=== PATIENT | female | born 1940 | race Two or more races ===

== ENCOUNTER 2018-11-23 13:09 | Inpatient (IN) | payer MEDICARE, OTHER ==
[~2018-11-23] VITALS: Ht 160 cm; Wt 81.6 kg
[2018-11-23] MEDS ORDERED: LORAZEPAM 1 MG TABLET ONE (13:13)
[2018-11-23] MEDS ORDERED: OLANZAPINE 5 MG TABLET ONE (13:14)
[2018-11-23] MEDS ORDERED: LORAZEPAM 0.5 MG TABLET PO ONE (13:15)
[2018-11-23] MEDS ORDERED: OLANZAPINE 5 MG TABLET PO ONE (13:15)
[2018-11-23 13:33] LABS: BASOPHILS # (AUTO) 0.1 K/uL (0.0-8.0); BASOPHILS % (AUTO) 0.8 % (0.0-2.0); EOSINOPHILS % (AUTO) 0.5 % (0.0-7.0); HEMOGLOBIN 12.7 g/dL (10.9-14.3); LYMPHOCYTES # (AUTO) 1.1 K/uL (20.0-40.0); LYMPHOCYTES % (AUTO) 13.7 % (20.5-51.5); MEAN CORPUSCULAR HEMOGLOBIN 29.9 uug (24.7-32.8); MEAN CORPUSCULAR HGB CONC 34 g/dL (32.3-35.6); MEAN CORPUSCULAR VOLUME 89.1 fL (75.5-95.3); MONOCYTES # (AUTO) 0.5 K/uL (2.0-10.0); MONOCYTES % (AUTO) 6.4 % (0.0-11.0); NEUTROPHILS # (AUTO) 6.3 K/uL (1.8-8.9); NEUTROPHILS % (AUTO) 78.6 % (38.5-71.5); PLATELET COUNT (AUTO) 337 K/uL (179-408); RED BLOOD CELL COUNT(AUTO) 4.26 MIL/uL (3.63-4.92)
[2018-11-23 13:39] LABS: CARBON DIOXIDE 28 mmol/L (21-32); CHLORIDE 106 mmol/L (98-107); CREATININE 0.8 mg/dL (0.6-1.3); GLUCOSE 81 mg/dL (74-106); POTASSIUM 3.2 mmol/L (3.5-5.1); UREA NITROGEN, BLOOD 21 mg/dL (7-18)
[2018-11-23 13:40] LABS: ETHANOL < 3 MG/DL (0-0)
[2018-11-23 13:50] LABS: *BILIRUBIN,URIN NEGATIVE (NEGATIVE); *BLOOD, URINE Trace-intact (NEGATIVE); *CLARITY,URINE CLEAR (CLEAR); *COLOR,URINE YELLOW (YELLOW); *KETONES,URINE 2+ (NEGATIVE); *PROTEIN,URINE 1+ (NEGATIVE); *UROBILINOGEN,URINE 0.2 E.U./dl (NORMAL); LEUKOCYTE ESTERASE ,URINE NEGATIVE (NEGATIVE); NITRITE, URINE NEGATIVE (NEGATIVE); PH,URINE 7.5 (5.0-8.0); UGLUCOSE NEGATIVE (NEGATIVE)
[2018-11-23 13:52] LABS: ACETAMINOPHEN < 2.0 ug/mL (10-30); ALANINE AMINOTRANSFERASE 31 U/L (14-59); ALKALINE PHOSPHATASE 93 U/L (50-136); ASPARTATE AMINOTRANSFERASE 30 U/L (15-37); BILIRUBIN,DIRECT 0.2 mg/dL (0.0-0.2); BILIRUBIN,TOTAL 0.5 mg/dL (0.2-1.0); TOTAL PROTEIN, SERUM 7.6 g/dL (6.4-8.2)
[2018-11-23 13:54] LABS: BACTERIA,URINE FEW /HPF (NONE SEEN); RBC,URINE 0-3 /HPF (0-3); SQUAMOUS EPITHELIAL CELL,UR FEW /HPF (NONE SEEN); WBC,URINE 0-3 /HPF (0-3)
[2018-11-23 14:00] LABS: *AMPHETAMINE, URINE NEGATIVE (NEGATIVE); *BARBITURATE, URINE NEGATIVE (NEGATIVE); *CANNABINOID, URINE NEGATIVE (NEGATIVE); *COCCAINE, URINE NEGATIVE (NEGATIVE); *OPIATE, URINE NEGATIVE (NEGATIVE); *PHENCYCLIDINE SCREEN,URINE NEGATIVE (NEGATIVE)
[2018-11-23] MEDS ORDERED: LORAZEPAM 0.5 MG TABLET PO PRN (14:30)
[2018-11-23] MEDS ORDERED: PNEUMOCOCCAL 23-VAL P-SAC VAC 0.5 ML VIAL IM ONE (15:15)
[2018-11-23] MEDS ORDERED: POTASSIUM CHLORIDE 20 MEQ TAB.PRT.SR PO STA (15:40)
[2018-11-23] MEDS: risperiDONE 0.25 MG TABLET PO SCH ×2 (16:28→16:29)
[2018-11-23 16:55] VITALS: BP 142/75
[2018-11-23 20:09] VITALS: BP 131/68
[2018-11-24] MEDS: LORAZEPAM 1 MG TABLET PO PRN ×2 (03:02→22:46)
[2018-11-24] MEDS: ESCITALOPRAM OXALATE 10 MG TABLET PO SCH (08:15)
[2018-11-24] MEDS: risperiDONE 0.25 MG TABLET PO SCH ×2 (08:15→16:35)
[2018-11-24 08:42] VITALS: BP 137/97
[2018-11-24] MEDS: ACETAMINOPHEN 325 MG TABLET PO PRN (16:32)
[2018-11-24 19:49] VITALS: BP 123/78
[2018-11-24] MEDS: ATORVASTATIN 20 MG TABLET PO SCH (20:18)
[2018-11-25 07:30] VITALS: BP 145/80
[2018-11-25] MEDS: risperiDONE 0.25 MG TABLET PO SCH ×2 (09:21→17:08)
[2018-11-25] MEDS: ESCITALOPRAM OXALATE 10 MG TABLET PO SCH (09:23)
[2018-11-25] MEDS: LORAZEPAM 1 MG TABLET PO PRN (12:40)
[2018-11-25 15:21] VITALS: BP 151/72
[2018-11-25 21:14] VITALS: BP 123/79
[2018-11-25] MEDS: ATORVASTATIN 20 MG TABLET PO SCH (21:44)
[2018-11-26] MEDS: LORAZEPAM 1 MG TABLET PO PRN (05:25)
[2018-11-26] MEDS: ACETAMINOPHEN 325 MG TABLET PO PRN ×2 (05:25→23:25)
[2018-11-26 07:30] VITALS: BP 128/63
[2018-11-26] MEDS: risperiDONE 0.25 MG TABLET PO SCH ×2 (08:12→16:09)
[2018-11-26] MEDS: ESCITALOPRAM OXALATE 10 MG TABLET PO SCH (08:13)
[2018-11-26] MEDS ORDERED: GUAIFENESIN/DEXTROMETHORPHAN 5 ML UDC PO PRN (11:45)
[2018-11-26] MEDS: MAG HYDROX/AL HYDROX/SIMETH 30 ML LIQUID UDC PO PRN (15:34)
[2018-11-26 17:10] VITALS: BP 125/71
[2018-11-26 19:41] VITALS: BP 152/79
[2018-11-26 20:06] VITALS: BP 132/69
[2018-11-26] MEDS: ATORVASTATIN 20 MG TABLET PO SCH (20:06)
[2018-11-26] MEDS: TEMAZEPAM 7.5 MG CAPSULE PO PRN (20:52)
[2018-11-27] MEDS: ESCITALOPRAM OXALATE 10 MG TABLET PO SCH (08:10)
[2018-11-27] MEDS: risperiDONE 0.25 MG TABLET PO SCH (08:10)
[2018-11-27 08:27] VITALS: BP 148/105
[2018-11-27] MEDS: ACETAMINOPHEN 325 MG TABLET PO PRN (10:52)
[2018-11-27] MEDS: LORAZEPAM 1 MG TABLET PO PRN (14:43)
[2018-11-27] MEDS: MAGNESIUM HYDROXIDE 30 ML LIQUID UDC PO PRN (14:43)
[2018-11-27] MEDS: risperiDONE 0.5 MG TABLET PO SCH (16:29)
[2018-11-27 16:30] VITALS: BP 131/76
[2018-11-27] MEDS ORDERED: risperiDONE 0.25 MG TABLET PO SCH (17:00)
[2018-11-27 19:47] VITALS: BP 143/77
[2018-11-27] MEDS: ATORVASTATIN 20 MG TABLET PO SCH (20:04)
[2018-11-28] MEDS: MAGNESIUM HYDROXIDE 30 ML LIQUID UDC PO PRN (05:30)
[2018-11-28] MEDS: LORAZEPAM 1 MG TABLET PO PRN (07:25)
[2018-11-28] MEDS: ACETAMINOPHEN 325 MG TABLET PO PRN (07:26)
[2018-11-28 08:01] VITALS: BP 173/87
[2018-11-28] MEDS: ESCITALOPRAM OXALATE 10 MG TABLET PO SCH (08:09)
[2018-11-28] MEDS: risperiDONE 0.5 MG TABLET PO SCH ×2 (08:09→17:20)
[2018-11-28] MEDS: MAG HYDROX/AL HYDROX/SIMETH 30 ML LIQUID UDC PO PRN (14:33)
[2018-11-28 15:06] VITALS: BP 157/85
[2018-11-28] MEDS: ONDANSETRON ODT 4 MG TAB.RAPDIS SL PRN (17:20)
[2018-11-28] MEDS: SIMETHICONE 80 MG TAB.CHEW PO PRN (20:10)
[2018-11-28] MEDS: ATORVASTATIN 20 MG TABLET PO SCH (20:10)
[2018-11-28 20:25] VITALS: BP 112/71
[2018-11-29] MEDS: LORAZEPAM 1 MG TABLET PO PRN ×2 (04:15→16:15)
[2018-11-29 07:51] LABS: BILIRUBIN,DIRECT 0.1 mg/dL (0.0-0.2); BILIRUBIN,TOTAL 0.3 mg/dL (0.2-1.0); TOTAL PROTEIN, SERUM 6.8 g/dL (6.4-8.2)
[2018-11-29 07:56] VITALS: BP 117/52
[2018-11-29] MEDS: ESCITALOPRAM OXALATE 10 MG TABLET PO SCH (08:15)
[2018-11-29] MEDS: ACETAMINOPHEN 325 MG TABLET PO PRN (08:17)
[2018-11-29] MEDS: SIMETHICONE 80 MG TAB.CHEW PO PRN (08:17)
[2018-11-29] MEDS: risperiDONE 0.5 MG TABLET PO SCH ×3 (08:17→16:37)
[2018-11-29 08:21] LABS: BILIRUBIN,DIRECT 0.1 mg/dL (0.0-0.2); BILIRUBIN,TOTAL 0.4 mg/dL (0.2-1.0)
[2018-11-29] MEDS: SUCRALFATE 1 G TABLET PO SCH ×2 (16:15→20:48)
[2018-11-29 16:36] LABS: BASOPHILS # (AUTO) 0.1 K/uL (0.0-8.0); BASOPHILS % (AUTO) 0.6 % (0.0-2.0); EOSINOPHILS # (AUTO) 0.2 K/uL (0.0-0.7); EOSINOPHILS % (AUTO) 1.8 % (0.0-7.0); HEMATOCRIT 38.4 % (31.2-41.9); HEMOGLOBIN 12.6 g/dL (10.9-14.3); LYMPHOCYTES # (AUTO) 2.2 K/uL (20.0-40.0); LYMPHOCYTES % (AUTO) 20.1 % (20.5-51.5); MEAN CORPUSCULAR HEMOGLOBIN 29.5 uug (24.7-32.8); MEAN CORPUSCULAR HGB CONC 33 g/dL (32.3-35.6); MEAN CORPUSCULAR VOLUME 89.9 fL (75.5-95.3); MONOCYTES % (AUTO) 9.1 % (0.0-11.0); NEUTROPHILS # (AUTO) 7.5 K/uL (1.8-8.9); NEUTROPHILS % (AUTO) 68.4 % (38.5-71.5); PLATELET COUNT (AUTO) 321 K/uL (179-408); RED BLOOD CELL COUNT(AUTO) 4.27 MIL/uL (3.63-4.92)
[2018-11-29 16:37] VITALS: BP 148/83
[2018-11-29 17:36] LABS: *OCCULT BLOOD STOOL POSITIVE (NEGATIVE)
[2018-11-29 20:00] VITALS: BP 117/66
[2018-11-29] MEDS: ATORVASTATIN 20 MG TABLET PO SCH (20:48)
[2018-11-29] MEDS: ONDANSETRON ODT 4 MG TAB.RAPDIS SL PRN (20:48)
[2018-11-30] MEDS: ACETAMINOPHEN 325 MG TABLET PO PRN ×3 (03:28→18:29)
[2018-11-30] MEDS: LORAZEPAM 1 MG TABLET PO PRN ×2 (03:28→11:33)
[2018-11-30] MEDS: PANTOPRAZOLE SODIUM 40 MG TABLET.DR PO SCH (06:50)
[2018-11-30] MEDS: SUCRALFATE 1 G TABLET PO SCH ×4 (06:50→20:44)
[2018-11-30 07:30] VITALS: BP 145/97
[2018-11-30] MEDS: ESCITALOPRAM OXALATE 10 MG TABLET PO SCH (08:16)
[2018-11-30] MEDS: risperiDONE 0.5 MG TABLET PO SCH (08:23)
[2018-11-30 15:07] VITALS: BP 98/74
[2018-11-30 15:54] VITALS: BP 89/55
[2018-11-30 19:44] VITALS: BP 128/80
[2018-11-30] MEDS: OLANZAPINE 5 MG TABLET PO SCH (20:43)
[2018-11-30] MEDS: ATORVASTATIN 20 MG TABLET PO SCH (20:43)
[2018-12-01] MEDS: ACETAMINOPHEN 325 MG TABLET PO PRN ×3 (04:56→15:46)
[2018-12-01] MEDS: PANTOPRAZOLE SODIUM 40 MG TABLET.DR PO SCH (06:47)
[2018-12-01] MEDS: SUCRALFATE 1 G TABLET PO SCH ×4 (06:47→20:04)
[2018-12-01 07:30] VITALS: BP 146/78
[2018-12-01] MEDS: OLANZAPINE 2.5 MG TABLET PO SCH (08:30)
[2018-12-01] MEDS: ESCITALOPRAM OXALATE 10 MG TABLET PO SCH (08:31)
[2018-12-01 16:21] VITALS: BP 109/49
[2018-12-01] MEDS: ATORVASTATIN 20 MG TABLET PO SCH (20:04)
[2018-12-01] MEDS: OLANZAPINE 5 MG TABLET PO SCH (20:04)
[2018-12-01 20:05] VITALS: BP 142/74
[2018-12-02] MEDS: ACETAMINOPHEN 325 MG TABLET PO PRN ×2 (05:23→11:56)
[2018-12-02] MEDS: PANTOPRAZOLE SODIUM 40 MG TABLET.DR PO SCH (06:23)
[2018-12-02] MEDS: SUCRALFATE 1 G TABLET PO SCH ×4 (06:43→20:08)
[2018-12-02 07:30] VITALS: BP 164/89
[2018-12-02] MEDS: ESCITALOPRAM OXALATE 10 MG TABLET PO SCH (08:50)
[2018-12-02] MEDS: OLANZAPINE 2.5 MG TABLET PO SCH (08:50)
[2018-12-02] MEDS: LORAZEPAM 1 MG TABLET PO PRN (11:56)
[2018-12-02 16:00] VITALS: BP 125/108
[2018-12-02] MEDS: ATORVASTATIN 20 MG TABLET PO SCH (20:08)
[2018-12-02] MEDS: OLANZAPINE 5 MG TABLET PO SCH (20:08)
[2018-12-02 21:30] VITALS: BP 131/71
[2018-12-03] MEDS: LORAZEPAM 1 MG TABLET PO PRN ×2 (05:59→18:24)
[2018-12-03] MEDS: PANTOPRAZOLE SODIUM 40 MG TABLET.DR PO SCH (06:00)
[2018-12-03 07:30] VITALS: BP 162/81
[2018-12-03] MEDS: SUCRALFATE 1 G TABLET PO SCH ×4 (08:04→21:10)
[2018-12-03] MEDS: ESCITALOPRAM OXALATE 10 MG TABLET PO SCH (08:42)
[2018-12-03] MEDS: OLANZAPINE 2.5 MG TABLET PO SCH (08:43)
[2018-12-03] MEDS: ACETAMINOPHEN 325 MG TABLET PO PRN ×2 (09:20→18:24)
[2018-12-03] MEDS: SIMETHICONE 80 MG TAB.CHEW PO PRN (12:21)
[2018-12-03 16:00] VITALS: BP 149/71
[2018-12-03 18:25] VITALS: BP 147/74
[2018-12-03] MEDS: ATORVASTATIN 20 MG TABLET PO SCH (21:10)
[2018-12-03] MEDS: OLANZAPINE 5 MG TABLET PO SCH (21:11)
[2018-12-03 21:27] VITALS: BP 138/79
[2018-12-04] MEDS: PANTOPRAZOLE SODIUM 40 MG TABLET.DR PO SCH (06:55)
[2018-12-04 07:30] VITALS: BP 124/80
[2018-12-04] MEDS: ACETAMINOPHEN 325 MG TABLET PO PRN (07:46)
[2018-12-04] MEDS: SUCRALFATE 1 G TABLET PO SCH ×4 (07:46→21:01)
[2018-12-04] MEDS: OLANZAPINE 2.5 MG TABLET PO SCH (08:48)
[2018-12-04] MEDS: ESCITALOPRAM OXALATE 10 MG TABLET PO SCH (08:49)
[2018-12-04] MEDS: LORAZEPAM 1 MG TABLET PO PRN ×2 (11:50→22:10)
[2018-12-04 16:00] VITALS: BP 114/61
[2018-12-04 20:00] VITALS: BP 138/62
[2018-12-04] MEDS: OLANZAPINE 5 MG TABLET PO SCH (21:01)
[2018-12-04] MEDS: ATORVASTATIN 20 MG TABLET PO SCH (21:01)
[2018-12-05] MEDS: PANTOPRAZOLE SODIUM 40 MG TABLET.DR PO SCH (06:44)
[2018-12-05] MEDS: SUCRALFATE 1 G TABLET PO SCH ×4 (06:44→20:09)
[2018-12-05] MEDS: ACETAMINOPHEN 325 MG TABLET PO PRN ×2 (06:48→18:27)
[2018-12-05 07:30] VITALS: BP 149/67
[2018-12-05 07:38] LABS: CARBON DIOXIDE 27 mmol/L (21-32); CHLORIDE 107 mmol/L (98-107); CREATININE 0.7 mg/dL (0.6-1.3); GLUCOSE 91 mg/dL (74-106); POTASSIUM 3.4 mmol/L (3.5-5.1); UREA NITROGEN, BLOOD 16 mg/dL (7-18)
[2018-12-05] MEDS: ESCITALOPRAM OXALATE 10 MG TABLET PO SCH (08:56)
[2018-12-05] MEDS: OLANZAPINE 2.5 MG TABLET PO SCH (08:56)
[2018-12-05] MEDS ORDERED: POTASSIUM CHLORIDE 20 MEQ TAB.PRT.SR PO ONE (10:15)
[2018-12-05 16:00] VITALS: BP 127/64
[2018-12-05] MEDS: OLANZAPINE 5 MG TABLET PO SCH (20:09)
[2018-12-05] MEDS: ATORVASTATIN 20 MG TABLET PO SCH (20:09)
[2018-12-05] MEDS: TIMOLOL MALEATE 0.5% OPHT DROP 5 ML BOTTLE EACHEYE SCH (20:10)
[2018-12-05 20:34] VITALS: BP 142/70
[2018-12-05] MEDS: TEMAZEPAM 7.5 MG CAPSULE PO PRN (23:12)
[2018-12-06] MEDS: ACETAMINOPHEN 325 MG TABLET PO PRN (05:46)
[2018-12-06] MEDS: PANTOPRAZOLE SODIUM 40 MG TABLET.DR PO SCH (06:11)
[2018-12-06 07:30] VITALS: BP 144/56
[2018-12-06] MEDS: SUCRALFATE 1 G TABLET PO SCH ×2 (08:35→11:51)
[2018-12-06] MEDS: OLANZAPINE 2.5 MG TABLET PO SCH (08:36)
[2018-12-06] MEDS: ESCITALOPRAM OXALATE 10 MG TABLET PO SCH (08:36)
[2018-12-06] MEDS: TIMOLOL MALEATE 0.5% OPHT DROP 5 ML BOTTLE EACHEYE SCH (08:45)
[2018-12-06] MEDS: LORAZEPAM 1 MG TABLET PO PRN (11:51)
== END 2018-12-06 11:30 | DRG 885 ==
LOC: ER 13:09 → GPS 13:58
PROVIDERS: ADMIT Psychiatry & Neurology Psychiatry; ATTEND Nurse Practitioner Acute Care
DX: F29 Unspecified psychosis not due to a substance or known physiological condition (principal); N17.0 Acute kidney failure with tubular necrosis; E44.1 Mild protein-calorie malnutrition; F32.9 Major depressive disorder, single episode, unspecified; F41.9 Anxiety disorder, unspecified; E78.5 Hyperlipidemia, unspecified; H40.9 Unspecified glaucoma; Z90.49 Acquired absence of other specified parts of digestive tract; Z68.31 Body mass index [BMI] 31.0-31.9, adult; E86.0 Dehydration; E87.6 Hypokalemia; M79.7 Fibromyalgia; R05 Cough; E66.9 Obesity, unspecified; Z71.3 Dietary counseling and surveillance; I10 Essential (primary) hypertension; K83.8 Other specified diseases of biliary tract; R26.9 Unspecified abnormalities of gait and mobility; R10.12 Left upper quadrant pain
CPT/HCPCS: 36415; 71045; 76700; 80307; 83690; 85025; 90732; 93005; 97110; 97116; 97165; 97530; A4663; G0480; G0480-TC; Q0162